=== PATIENT | male | born 1985 | race Caucasian/White ===

== ENCOUNTER 2018-06-06 05:13 | Day surgery (SDC) | payer OTHER, BC ==
[~2018-06-06] VITALS: Ht 170.2 cm; Wt 71.7 kg
--- NOTE | ~2018-06-06 | O ---
[facility] [place] [address] OPERATIVE REPORT Name: GRETA MCDONALD Room #: [facility]P [facility]..#: [id number] Admission: 06/06/18 Attend Phys: Yosef Hermosillo MD Discharge: 06/06/18 Date of : 87 Report #: [id number] THIS REPORT FOR: //name// CC: Yosef Clark DATE OF SERVICE: 06/06/2018 PREOPERATIVE DIAGNOSES: 1. Closed nasal fracture. 2. Deviated septum. 3. Turbinate hypertrophy. POSTOPERATIVE DIAGNOSES: 1. Closed nasal fracture. 2. Deviated septum. 3. Turbinate hypertrophy. PROCEDURE: 1. Closed nasal reduction, surgical time 15 minutes. 2. Revision nasal septoplasty and turbinate reduction, surgical time 45 minutes. ANESTHESIA: General LMA. INDICATIONS: See patient's H and P. FINDINGS: Nasal fractures were noted with the nasal dorsum bowed to the patient's left side, impaction of the nasal bones on the right side was medial and posteriorly, left side was laterally. Substantial narrowing of the right nasal area was noted from the nasal bone fracture. Nasal septum showed an absence of septal cartilage in the mid and posterior portion from previous septoplasty. The caudal edge of the anterior nasal septum was bowed off the maxillary crest severely to the patient's left side with a high deviation to the right side and the bowing corresponding to the nasal fracture. TECHNIQUE: After obtaining consent, he was brought to the operating suite, appropriate time out was performed. General LMA anesthesia was obtained, the bed was turned 90 degrees. Nose was prepped and draped in usual sterile fashion. A 5 mL of 1% Xylocaine with 1:100,000 epinephrine was injected in each side of the septum and additional 1 mL was injected in each inferior turbinate for total use of 7 mL local anesthetic. A right-sided hemitransfixion incision was made. Due to previous surgery, there was difficulty in elevating a clean mucosal flap on the left side. I was able to find the caudal edge and followed this developing a plane superiorly along the cranial edge and exposing the entire caudal edge. As I worked my way posteriorly, I came across the [address] [address] OPERATIVE REPORT Name: GRETA MCDONALD Room #: DEP [facility] [place] M.R.#: [id number] Admission: 06/06/18 Attend Phys: Yosef Hermosillo MD Discharge: 06/06/18 Date of : 87 Report #: [id number] of cartilage from previous excision. I attempted to divide the mucosal flap, which was scarred together, but was not able to do so and there was a small tear on the left mucosal flap. As most of the deviation was noted anteriorly on the right side and inferiorly on the left on the caudal edge, I then fully exposed the caudal edge and trimmed off the deviated inferior portion, which had bowed off to the left side. This in effect, gave me a swinging door to the caudal edge of the septum. This allowed me to move it back to the midline and created a pocket between the medial crura. I was able to place the septum in place and this was then secured with a 4-0 Sujit needle. Prior to that, I did close the hemitransfixion incision with 4-0 chromic suture. I then quilted the septum in midline after anchoring it down to the bone in midline inferiorly. Septal splints were placed on each side and secured with a 3-0 Prolene suture. Each inferior turbinate was reduced on its medial inferior edge with a microdebrider blade after opening a submucosal pocket on the medial surface with a Hayes blade and then elevating the flap with a caudal elevator. After reducing each inferior turbinate to an adequate degree, I then outfractured each with the Boies elevator. This completed the septal reconstructive portion of the case. Using a Boies elevator, I then freed up the nasal fracture bones, measuring the end of the elevator up to the medial canthus with a gentle digital manipulation and the Boies elevator, I was able to free up the fracture fragments quite easily. There appeared to be a bit of sway in the dorsum inferiorly and I thought this may be from an impaction posteriorly, so I used the Asch forceps to try to distract this anteriorly; however, it did not tend to move after several attempts. However, we were able to get the nasal bones back in midline. To keep the right nasal bones from medializing, I placed a large piece of MeroGel between the septum and the nasal bones on both sides. I then placed a couple of small pieces of the residual MeroGel between the inferior turbinate and septum bilaterally. This gave an adequate midline appearance to the nasal bone and restored the natural appearing anatomy. The nasal skin was cleaned with alcohol. I then allowed it to air dry and then placed Mastisol followed by quarter inch brown tape over the nasal skin. A thermoplast splint was warmed to molding temperature, molded over the nasal bones and held in place with brown tape. At this point having met the goals of surgery, he was returned back to anesthesia, allowed to awaken and taken to recovery room in stable condition. ESTIMATED BLOOD LOSS: 20 mL. <ELECTRONICALLY SIGNED> By: Yosef Hermosillo MD 06/10/18 [id number] [id number] Yosef Hermosillo MD /moris
[~2018-06-06 05:13] MED LIST: XANAX1 MG PO
[2018-06-06 09:32] VITALS: BP 129/82
[2018-06-06 13:48] VITALS: BP 129/82
== END 2018-06-06 15:07 | disposition home or self-care (01) ==
LOC: OR 05:13 → TBA 05:13 → OR 11:04
DX: J34.2 Deviated nasal septum (principal); J34.3 Hypertrophy of nasal turbinates; S02.2XXA Fracture of nasal bones, initial encounter for closed fracture; F17.210 Nicotine dependence, cigarettes, uncomplicated; F41.9 Anxiety disorder, unspecified; F32.9 Major depressive disorder, single episode, unspecified; Z79.899 Other long term (current) drug therapy; Z98.818 Other dental procedure status; Z98.890 Other specified postprocedural states; X58.XXXA Exposure to other specified factors, initial encounter; Y93.89 Activity, other specified; Y92.89 Other specified places as the place of occurrence of the external cause; Y99.8 Other external cause status
CPT/HCPCS: 50010; 50101; 50386; 50398; 51313; 51316; 51634; 53635; 56524; 56526; 56528; 62110; 62900; 70005